=== PATIENT | male | born 1980 | race Caucasian/White ===

== ENCOUNTER 2021-08-29 09:42 | Emergency (ER) | payer SELFPAY ==
[2021-08-29 09:51] VITALS: BP 116/85; PULSE 93; RESP 16; TEMP 36.4; O2SAT 98
--- NOTE | 2021-08-29 12:10 | PC.NURSE ---
patient refused lab work and CT scan. provider and charge nurse aware, patient signed AMA papers and left facility with mother
--- NOTE | 2021-08-29 12:15 | ED.DENTAL ---
HPI - Dental/Oral General Chief complaint: Dental/Oral <Nathalie Leavitt PA-C - Last Filed: 08/29/21 12:26> Stated complaint: L TOOTH INFECTION <Nathalie Leavitt PA-C - Last Filed: 08/29/21 12:26> Time Seen by Provider: 08/29/21 11:33 <Nathalie Leavitt PA-C - Last Filed: 08/29/21 12:26> Source: patient <Nathalie Leavitt PA-C - Last Filed: 08/29/21 12:26> Mode of arrival: ambulatory <Nathalie Leavitt PA-C - Last Filed: 08/29/21 12:26> Limitations: no limitations <Nathalie Leavitt PA-C - Last Filed: 08/29/21 12:26> History of Present Illness HPI Narrative: This is a 40-year-old male that presents to the emergency department for tooth ache present over the last couple of days. Associated with swelling of his face. Denies fever, dysphagia, or dyspnea. <Nathalie Leavitt PA-C - Last Filed: 08/29/21 12:26> MD Complaint: tooth pain <Nathalie Leavitt PA-C - Last Filed: 08/29/21 12:26> Location: Tooth # (14) <Nathalie Leavitt PA-C - Last Filed: 08/29/21 12:26> Related Data Allergies/adverse reactions: Allergies Allergy/AdvReac Type Severity Reaction Status Date / Time No Known Allergies Allergy Verified 08/29/21 10:52 <Nathalie Leavitt PA-C - Last Filed: 08/29/21 12:26> Review of Systems Review of Systems: CONSTITUTIONAL: Denies fever ENT: Reports dentalgia <Nathalie Leavitt PA-C - Last Filed: 08/29/21 12:26> All systems reviewed & are unremarkable except as noted in HPI and below <Nathalie Leavitt PA-C - Last Filed: 08/29/21 12:26> PMFSH Past Medical History Medical History: Medical History (Updated 08/29/21 @ 12:21 by Nathalie Leavitt PA-C) No active medical problems <Nathalie Leavitt PA-C - Last Filed: 08/29/21 12:26> Social History Social History: Social History (Updated 08/29/21 @ 12:21 by Nathalie Leavitt PA-C) Smoking status: Current every day smoker <Nathalie Leavitt PA-C - Last Filed: 08/29/21 12:26> Exam Narrative: GENERAL: Well-appearing, well-nourished, and in no acute distress. HEAD: Normocephalic, atraumatic. EYES: EOMI. ENT: Oropharynx without tonsillar hypertrophy exudate or other lesions. Floor of mouth is soft. Poor dentition. Tooth #14 is rotten with moderate surrounding edema, no obvious fluctuance to suggest abscess NECK: Supple. No adenopathy or masses. CHEST: Clear to auscultation. No respiratory distress. No wheezes rales or rhonchi HEART: Regular rate and rhythm. No murmur heard. Normal peripheral pulses. EXTREMITIES: Normal range of motion. No edema. SKIN: Warm, dry, no rash. NEURO: No focal deficits. Alert and oriented x3. PSYCH: Normal mood and affect <Nathalie Leavitt PA-C - Last Filed: 08/29/21 12:26> Course WELL FLOW OPERATOR/PA Physician Supervision For this patient encounter, I reviewed the WELL FLOW OPERATOR or PA documentation, treatment plan, and medical decision making <Jacob Odom MD - Last Filed: 08/29/21 18:20> Vital Signs Vital signs: Vital Signs Temperature 97.5 F L 08/29/21 09:51 Pulse Rate 93 08/29/21 09:51 Respiratory Rate 16 08/29/21 09:51 Blood Pressure 116/85 08/29/21 09:51 Pulse Oximetry 98 08/29/21 09:51 Oxygen Delivery Room Air 08/29/21 09:51 Temperature 97.5 F L 08/29/21 09:51 Pulse Rate 93 08/29/21 09:51 Respiratory Rate 16 08/29/21 09:51 Blood Pressure 116/85 08/29/21 09:51 Pulse Oximetry 98 08/29/21 09:51 Oxygen Delivery Room Air 08/29/21 09:51 <Nathalie Leavitt PA-C - Last Filed: 08/29/21 12:26> Vital Signs Temperature 97.5 F L 08/29/21 09:51 Pulse Rate 93 08/29/21 09:51 Respiratory Rate 16 08/29/21 09:51 Blood Pressure 116/85 08/29/21 09:51 Pulse Oximetry 98 08/29/21 09:51 Oxygen Delivery Room Air 08/29/21 09:51 Temperature 97.5 F L 08/29/21 09:51 Pulse Rate 93 08/29/21 09:51 Respiratory Rate 16 08/29/21 09:51 Blood Pressure 116/85 08/29/21 09:51 Pulse Oximetry 98 08/29/21 09:51 Oxyge
== END 2021-08-29 12:10 | disposition left against medical advice (07) ==
PROVIDERS: Emergency Provider Emergency Medicine
DX: K08.89 Other specified disorders of teeth and supporting structures (principal); F17.200 Nicotine dependence, unspecified, uncomplicated
CPT/HCPCS: 99283

== ENCOUNTER 2023-06-23 21:39 | Emergency (ER) | payer SELFPAY ==
--- NOTE | ~2023-06-23 | CT_ITS ---
CT of the Abdomen and Pelvis: Indication: Abdominal pain, vomiting Technique: 2.5 mm axial scans were obtained through the abdomen and pelvis following intravenous adm inistration of 100 cc of Omnipaque 350. Dose reduction technique was used on this scan by utilizing a utomated exposure control and iterative reconstruction technique. The dose-length product (DLP) was 2 42.99 mGy-cm. Findings: Scans through the lung bases are unremarkable. The liver, spleen, pancreas, gallbladder, adrenals and left kidney are within normal limits. 5 mm non obstructing right renal stone present. No evidence of aortic aneurysm. No lymphadenopathy. No bowel obstruction or bowel wall thickening. There is no evidence to suggest acute appendicitis. Images through the pelvis were performed. Urinary bladder unremarkable. No pelvic mass seen. No ascit es. Impression: No acute abnormalities seen. 5 mm nonobstructing right renal stone. Reviewed, dictated and finalized at [facility]. Impression: No acute abnormalities seen. 5 mm nonobstructing right renal stone.
[2023-06-23 22:00] VITALS: BP 147/86; PULSE 64; RESP 20; TEMP 36.7; O2SAT 100
[2023-06-23 23:49] LABS: Appearance Urine Clear (Clear); Bilirubin Urine Negative (Negative); Blood Urine Negative (Negative); Color Urine Yellow (Yellow); Glucose Urine UA Negative (Negative); Ketones Urine 1+ mg/dL (Negative); Leukocyte Esterase Ur Negative LEU/UL (Negative); Nitrate Urine Negative (Negative); Protein Urine Negative (Negative); Specific Grav Ur 1.024 (1.001-1.035); pH Urine 6.5 (5.0-9.0)
[2023-06-23 23:54] LABS: Add Urine Microscopic? NO
[2023-06-24 00:05] VITALS: BP 131/78; PULSE 68; RESP 16; O2SAT 98
[2023-06-24] MEDS: SODIUM CHLORIDE 0.9% IV 1,000 ML 999 ML IV CONT (00:16)
[2023-06-24] MEDS: ONDANSETRON INJ 4 MG/2 ML VIAL IV PUSH (00:16)
[2023-06-24] MEDS: PANTOPRAZOLE SODIUM IV 40 MG VIAL IV PUSH (00:16)
[2023-06-24 00:30] LABS: Basophils Absolute Auto 0.1 K/mm3 (0.0-0.1); Basophils Percent Auto 0.5 % (0.2-1.2); Eosinophils Percent Auto 0.2 % (0-4.4); Hematocrit 37.7 % (42.0-52.0); Hemoglobin 12.9 g/dL (14.0-18.0); Immature Granulocyte Absolute 0.21 K/mm3 (0.00-0.031); Immature Granulocyte Percent A 2.1 % (0-0.5); Lymphocytes Absolute Auto 1.15 K/mm3 (0.9-3.2); Lymphocytes Percent Auto 11.8 % (18.3-44.2); Mean Corpuscular HGB Conc 34.2 g/dl (32-36); Mean Corpuscular Hemoglobin 29.2 pg (26-34); Mean Corpuscular Volume 85.3 fl (80-100); Mean Platelet Volume 9.6 fl (7.4-10.4); Monocytes Absolute Auto 0.9 K/mm3 (0.1-0.6); Monocytes Percent Auto 9.3 % (2.6-8.5); Neutrophils Absolute Auto 7.4 K/mm3 (1.3-6.7); Neutrophils Percent Auto 76.1 % (45.5-73.1); Platelet Count Result 257 k/mm3 (150-375); Red Blood Count 4.42 M/mm3 (4.6-6.20); Red Cell Distribution Width 12.3 % (11.5-14.5); White Blood Count 9.8 K/mm3 (4.5-10.0)
--- NOTE | 2023-06-24 00:31 | ED.NAVMDI ---
HPI - Nausea/Vomiting/Diarrhea General Chief complaint: Nausea/Vomiting/Diarrhea Stated complaint: vomiting Time Seen by Provider: 06/23/23 23:48 Source: patient Mode of arrival: ambulatory Limitations: no limitations History of Present Illness HPI Narrative: This is a 42 year old male that presents to the ER for epigastric abdominal pain. Ongoing over the last 4 days. Associated with nausea and vomiting. Reports subjective fevers and sweats. Denies diarrhea. Related Data Allergies Allergy/AdvReac Type Severity Reaction Status Date / Time No Known Allergies Allergy Verified 06/24/23 00:10 Review of Systems Review of Systems: CONSTITUTIONAL: Reports fever, and sweats. GASTROINTESTINAL: Reports abdominal pain, nausea, vomiting. Denies diarrhea. All systems reviewed & are unremarkable except as noted in HPI and below PMFSH Past Medical History Medical History (Updated 06/24/23 @ 03:40 by Nathalie Leavitt PA-C) History of gastroesophageal reflux (GERD) Social History Social History (Updated 06/24/23 @ 00:34 by Nathalie Leavitt PA-C) Smoking status: Current every day smoker Tobacco type: e-cigarettes/vaping Substance use: current Substance use type: marijuana Exam Narrative: GENERAL: Well-appearing, well-nourished, and in no acute distress. HEAD: Normocephalic, atraumatic. EYES: EOMI. CHEST: Clear to auscultation. No respiratory distress. No wheezes rales or rhonchi HEART: Regular rate and rhythm. No murmur heard. Normal peripheral pulses. ABDOMEN: Soft, nontender, nondistended, normal active bowel sounds. EXTREMITIES: Normal range of motion. No edema. SKIN: Warm, dry, no rash. NEURO: No focal deficits. Alert and oriented x3. PSYCH: Normal mood and affect Course Course Emergency Course: Patient updated on workup and agrees with plan of care Vital Signs Vital signs: Vital Signs Temperature 98.0 F 06/23/23 22:00 Pulse Rate 64 06/23/23 22:00 Respiratory Rate 20 06/23/23 22:00 Blood Pressure 147/86 H 06/23/23 22:00 Pulse Oximetry 100 06/23/23 22:00 Oxygen Delivery Room Air 06/23/23 22:00 Temperature 98.0 F 06/23/23 22:00 Pulse Rate 60 06/24/23 04:06 Respiratory Rate 19 06/24/23 04:06 Blood Pressure 138/99 H 06/24/23 04:06 Pulse Oximetry 99 06/24/23 04:06 Oxygen Delivery Room Air 06/23/23 22:00 MDM - Nausea/Vomiting/Diarrhea MDM Narrative Medical decision making narrative: Patient presents to the ER for epigastric abdominal pain, nausea and vomiting. He is afebrile and nontoxic appearing. His vitals are stable. CBC without leukocytosis. Metabolic panel without concerning findings. Lipase is normal. UA without evidence for infection. CT abdomen/pelvis Differential Diagnosis Differential diagnosis: Likely food poisoning, gastroenteritis, dehydration and other (GERD, esophagitis) Lab Data Attestation: I reviewed the patient's lab results. 06/24/23 00:18 06/24/23 00:18 Labs: Lab Results 06/23/23 06/24/23 Range/Units 23:39 00:18 WBC 9.8 (4.5-10.0) K/mm3 RBC 4.42 L (4.6-6.20) M/mm3 Hgb 12.9 L (14.0-18.0) g/dL Hct 37.7 L (42.0-52.0) % MCV 85.3 (80-100) fl MCH 29.2 (26-34) pg MCHC 34.2 (32-36) g/dl RDW 12.3 (11.5-14.5) % Plt Count 257 (150-375) k/mm3 MPV 9.6 (7.4-10.4) fl Immature Gran % (Auto) 2.1 H (0-0.5) % Neut % (Auto) 76.1 H (45.5-73.1) % Lymph % (Auto) 11.8 L (18.3-44.2) % [place] % (Auto) 9.3 H (2.6-8.5) % Eos % (Auto) 0.2 (0-4.4) % Baso % (Auto) 0.5 (0.2-1.2) % Lymph # (Auto) 1.15 (0.9-3.2) K/mm3 [place] # (Auto) 0.9 H (0.1-0.6) K/mm3 Eos # (Auto) 0.0 (0-0.3) K/mm3 Baso # (Auto) 0.1 (0.0-0.1) K/mm3 Abs Immat Gran (auto) 0.21 H (0.00-0.031) K/mm3 Absolute Neuts (auto) 7.4 H (1.3-6.7) K/mm3 Absolute Nucleated RBC 0.000 (0.0-0.012) K/mm3 Nucleated RBC % 0.0 (0.0-0.2) % Sodium 136 L (137-145) mmol/L Potass
[2023-06-24 00:36] LABS: Alanine Aminotransferase 17 U/L (6-50); Albumin Level 4.5 g/dL (3.5-5.1); Alkaline Phosphatase 67 U/L (38-126); Anion Gap 8 mmol/L (4-12); Aspartate Amino Transferase 22 U/L (17-59); Bilirubin,Total 0.9 mg/dL (0.2-1.3); Blood Urea Nitrogen 19 mg/dL (9-20); Carbon Dioxide 26 mmol/L (22-30); Chloride 102 mmol/L (98-107); Estimated CRCL calculation 93 ml/min; Estimated Glomerular Filt Rate > 60; Glucose 116 mg/dL (65-110); Lipase 50 U/L (23-300); Potassium 3.4 mmol/L (3.4-5.0); Sodium 136 mmol/L (137-145)
[2023-06-24] MEDS: TETANUS,DIPHTHERIA,AC PERTUSSIS ADULT (0.5 ML) BOOSTRIX IM (00:38)
[2023-06-24 01:53] VITALS: BP 121/81; PULSE 66; RESP 18; O2SAT 96
[2023-06-24] MEDS: DICYCLOMINE HCL INJ 20 MG/2 ML VIAL IM (02:45)
[2023-06-24] MEDS: METOCLOPRAMIDE HCL INJ 10 MG/2 ML VIAL IV PUSH (02:45)
[2023-06-24] MEDS: diphenhydrAMINE HCl INJ 50 MG/ML VIAL 25 MG IV PUSH (02:45)
[2023-06-24 04:06] VITALS: BP 138/99; PULSE 60; RESP 19; O2SAT 99
== END 2023-06-24 06:15 | disposition home or self-care (01) ==
PROVIDERS: Emergency Provider Emergency Medicine
DX: R10.13 Epigastric pain (principal); R11.2 Nausea with vomiting, unspecified; Z23 Encounter for immunization; K21.9 Gastro-esophageal reflux disease without esophagitis; F17.290 Nicotine dependence, other tobacco product, uncomplicated; N20.0 Calculus of kidney
CPT/HCPCS: 36415; 74177; 80053; 81003; 83690; 85025; 90471; 90715; 96361; 96372; 96374; 96375; 99284; C9113; J0500; J1200; J2405; J2765; J7030; Q9967